=== PATIENT | female | born 1935 | race Caucasian/White ===

== ENCOUNTER 2018-01-08 14:15 | Inpatient (IN) | payer MEDICAID, OTHER ==
[~2018-01-08 14:15] MED LIST: ETOMIDATE 20 MG INJ; NORepinephrine 8MG/250 ML BAG; SUCCINYLCHOLINE CHLORIDE 100 MG/5 ML SYG IV
[2018-01-08] MEDS: ETOMIDATE 20 MG INJ IV (14:23)
[2018-01-08] MEDS: SUCCINYLCHOLINE CHLORIDE 100 MG/5 ML SYG IV (14:23)
[2018-01-08] MEDS: PROPOFOL 100 ML IV (14:23)
[2018-01-08 15:04] LABS: ADD MAN DIFF? NO
[2018-01-08 15:09] LABS: ABNORMAL IP MESSAGE 1; BASOPHILS % 0.2 % (0.0-2.0); HEMATOCRIT 41.1 % (37.0-47.0); HEMOGLOBIN 13.9 g/dl (12.0-16.0); LYMPHOCYTES # 0.3 10^3/ul (0.8-2.9); MEAN CORPUSCULAR HEMOGLOBIN 33.6 pg (29.0-33.0); MEAN CORPUSCULAR HGB CONC 33.8 g/dl (32.0-37.0); MEAN CORPUSCULAR VOLUME 99.3 fl (82.0-101.0); MEAN PLATELET VOLUME 12.3 fl (7.4-10.4); MONOCYTE # 0.5 10^3/ul (0.3-0.9); NEUTROPHIL # 3.4 10^3/ul (1.6-7.5); NEUTROPHILS % 80.3 % (39.0-77.0); NUCLEATED RED BLOOD CELLS # 0.1 10^3/ul (0.0-0.0); PLATELET COUNT 213 10^3/UL (140-415); RED BLOOD COUNT 4.14 10^6/ul (4.20-5.40); RED CELL DISTRIBUTION WIDTH 17.7 % (11.5-14.5)
[2018-01-08 15:09] LABS: WHITE BLOOD COUNT 4.3 10^3/ul (4.8-10.8)
[2018-01-08 15:10] LABS: POSITIVE DIFF @See below
[2018-01-08 15:11] LABS: AADO2 Arterial 426.3 mmHg (7.0-24.0); Allen Test ACCEPTAB; Arterial Base Excess -1.3 mmol/L (-3.0-3); Arterial Blood Gas Oxygen Sat 99.4 mmHG (95.0-100.0); Arterial COHb 0.9 % (0.0-3.0); Arterial Fraction of Oxyhgb 98.1 % (93.0-99.0); Arterial HCO3 27.3 mmol/L (22.0-26.0); Arterial MetHb 0.4 % (0.0-1.5); Arterial Total Hemglobin 15.3 g/dl (12.0-18.0); Arterial pCO2 62.1 mmhg (35-45); MODE VENT - AC; Site Left Radial
[2018-01-08] MEDS: SOD CHLORIDE 0.9% 1,000 ML IV ×4 (15:12→22:11)
[2018-01-08 15:23] LABS: ALANINE AMINOTRANSFERASE 63 IU/L (13-69); ALBUMIN 3.6 g/dl (3.3-4.9); ALBUMIN/GLOBULIN RATIO 1.02; ALKALINE PHOSPHATASE 199 IU/L (42-121); ANION GAP 20 (8-16); ASPARTATE AMINO TRANSFERASE 85 IU/L (15-46); BILIRUBIN,INDIRECT 0.9 mg/dl (0-1.1); BILIRUBIN,TOTAL 1.1 mg/dl (0.2-1.3); BLOOD UREA NITROGEN 104 mg/dl (7-20); CALCIUM 9.3 mg/dl (8.4-10.2); CARBON DIOXIDE 31 mmol/L (21-31); CHLORIDE 92 mmol/L (97-110); CREATININE 2.86 mg/dl (0.44-1.00); GLUCOSE 106 mg/dl (70-220); SODIUM 136 mmol/L (135-144); TOTAL PROTEIN 7.1 g/dl (6.1-8.1)
[2018-01-08 15:26] LABS: PARTIAL THROMBOPLASTIN TIME 40.2 Sec (25.0-35.0); PROTIME 29.4 Sec (11.9-14.9); PT RATIO 2.3
[2018-01-08 15:33] LABS: TROPONIN-I 0.028 ng/ml (0.00-0.12)
[2018-01-08 15:39] LABS: CREATINE KINASE 372 IU/L (23-200)
[2018-01-08] MEDS: CEFEPIME 1GM/50 ML (PMX) 50 ML IVPB (15:42)
[2018-01-08] MEDS: CA CHLORIDE 10% 10 ML SYRINGE IV (15:42)
[2018-01-08] MEDS: NA BICARBONATE 8.4% 50 ML SYG IV (15:42)
[2018-01-08] MEDS: HYDROmorphONE 1 MG/5 ML IV SYRINGE IV (15:43)
[2018-01-08] MEDS: ALBUTEROL 0.5% (NEB) 2.5 MG/0.5 ML AMP INH (15:58)
[2018-01-08 17:29] LABS: AADO2 Arterial 225.8 mmHg (7.0-24.0); Allen Test ACCEPTAB; Arterial Base Excess 0.5 mmol/L (-3.0-3); Arterial Blood Gas Oxygen Sat 95.8 mmHG (95.0-100.0); Arterial COHb 0.7 % (0.0-3.0); Arterial Fraction of Oxyhgb 94.8 % (93.0-99.0); Arterial HCO3 25.6 mmol/L (22.0-26.0); Arterial MetHb 0.3 % (0.0-1.5); Arterial Total Hemglobin 13.9 g/dl (12.0-18.0); Arterial pCO2 42.9 mmhg (35-45); MODE VENT - AC; Site Left Radial
[2018-01-08] MEDS ORDERED: ACETAMINOPHEN 650MG/20.3ML CUP PO (17:30)
[2018-01-08] MEDS ORDERED: ONDANSETRON 4 MG INJ IV (17:30)
[2018-01-08] MEDS ORDERED: VANCOMYCIN IV PER PHARMACY XX (17:30)
[2018-01-08 17:35] LABS: LACTIC ACID 2.3 mmol/L (0.5-2.0)
[2018-01-08 18:10] LABS: ADD UMIC YES; UR AMORPHOUS CRYSTAL FEW /HPF (NONE SEEN); UR ASCORBIC ACID NEGATIVE (NEGATIVE); UR BACTERIA FEW /HPF (NONE SEEN); UR BILIRUBIN (Dip) NEGATIVE (NEGATIVE); UR BLOOD (Dip) 3+ mg/dL (NEGATIVE); UR CLARITY CLOUDY (CLEAR); UR COLOR AMBER (YELLOW); UR GLUCOSE (Dip) NEGATIVE (NEGATIVE); UR KETONES (Dip) TRACE mg/dL (NEGATIVE); UR LEUKOCYTE ESTERASE (Dip) TRACE Leu/ul (NEGATIVE); UR NITRITE (Dip) NEGATIVE (NEGATIVE); UR RBC 99 /HPF (0-5); UR SPECIFIC GRAVITY (Dip) 1.013 (1.003-1.030); UR TOTAL PROTEIN (Dip) 2+ mg/dl (NEGATIVE); UR UROBILINOGEN (Dip) NEGATIVE (NEGATIVE); UR WBC 16 /HPF (0-5)
[2018-01-08 18:16] LABS: POTASSIUM,URINE RANDOM 82.3 mmol/L (25-125)
[2018-01-08 18:17] LABS: SODIUM,URINE RANDOM < 13 mmol/L (30-90)
[2018-01-08 18:18] LABS: OSMOLALITY,URINE 341 mOsm/kg (250-1200)
[2018-01-08] MEDS: NORepinephrine 8MG/250 ML (PMX 250 ML IV (18:40)
[2018-01-08] MEDS: MIDAZOLAM (DRIP) 50 mg/50 mL 50 ML IV (19:26)
[2018-01-08 20:07] LABS: ANION GAP 19 (8-16); BLOOD UREA NITROGEN 99 mg/dl (7-20); CALCIUM 8.9 mg/dl (8.4-10.2); CARBON DIOXIDE 28 mmol/L (21-31); CHLORIDE 96 mmol/L (97-110); CREATININE 2.65 mg/dl (0.44-1.00); GLUCOSE 102 mg/dl (70-220); SODIUM 136 mmol/L (135-144)
[2018-01-08 20:13] LABS: LACTIC ACID 3.3 mmol/L (0.5-2.0)
[2018-01-08 20:14] LABS: POTASSIUM 6.6 mmol/L (3.5-5.1)
[2018-01-08] MEDS: METOPROLOL 50 MG TAB PO (21:00)
[2018-01-08] MEDS: SOD CHLORIDE 0.9% 500 ML IV (22:11)
[2018-01-08] MEDS: NA POLYST SULFON 15 GM/60 ML BTL PO (22:25)
[2018-01-08] MEDS ORDERED: FENTAnyl (DRIP) 1000 mcg/100mL 100 ML IV (22:30)
[2018-01-08] MEDS: DEXTROSE 50% 50 ML SYRINGE IV (22:47)
[2018-01-08] MEDS: INSULIN ASPART [NOVOLOG] 3 ML PEN SC (22:51)
[2018-01-08] MEDS: VANCOMYCIN 1.5 GM in SOD CHLORIDE 0.9% 250 ML IVPB (23:52)
[2018-01-08] MEDS: FENTAnyl (DRIP) 1000 mcg/100mL 100 ML IV (23:53)
[2018-01-09] MEDS ORDERED: MIDAZOLAM (DRIP) 50 mg/50 mL 50 ML IV (00:30)
[2018-01-09 01:16] LABS: ANION GAP 18 (8-16); BLOOD UREA NITROGEN 94 mg/dl (7-20); CALCIUM 8.6 mg/dl (8.4-10.2); CARBON DIOXIDE 25 mmol/L (21-31); CHLORIDE 99 mmol/L (97-110); CREATININE 2.52 mg/dl (0.44-1.00); GLUCOSE 119 mg/dl (70-220); POTASSIUM 5.4 mmol/L (3.5-5.1); SODIUM 137 mmol/L (135-144)
[2018-01-09 01:16] LABS: LACTIC ACID 3.3 mmol/L (0.5-2.0)
[2018-01-09] MEDS: MIDAZOLAM (DRIP) 50 mg/50 mL 50 ML IV (02:01)
[2018-01-09 06:32] LABS: ADD MAN DIFF? NO
[2018-01-09 06:50] LABS: ALBUMIN 2.4 g/dl (3.3-4.9); ANION GAP 18 (8-16); BLOOD UREA NITROGEN 93 mg/dl (7-20); CALCIUM 8.6 mg/dl (8.4-10.2); CARBON DIOXIDE 25 mmol/L (21-31); CHLORIDE 100 mmol/L (97-110); CREATININE 2.56 mg/dl (0.44-1.00); GLUCOSE 126 mg/dl (70-220); MAGNESIUM 2.3 mg/dl (1.7-2.5); PHOSPHORUS 5.3 mg/dl (2.5-4.9); POTASSIUM 5.6 mmol/L (3.5-5.1); SODIUM 137 mmol/L (135-144)
[2018-01-09 07:15] LABS: LACTIC ACID 3.2 mmol/L (0.5-2.0)
[2018-01-09] MEDS: SOD CHLORIDE 0.9% 1,000 ML IV ×2 (07:34→11:02)
[2018-01-09] MEDS: RIVAROXABAN 15 MG TABLET PO (07:35)
[2018-01-09] MEDS: LEVOTHYROXINE 75 MCG TAB PO (08:18)
[2018-01-09] MEDS: PANTOPRAZOLE 40 MG INJ IV (08:18)
[2018-01-09] MEDS: THIAMINE 100 MG TAB PO (08:18)
[2018-01-09] MEDS: BUMETANIDE 1 MG TAB PO (08:18)
[2018-01-09] MEDS: METOPROLOL 50 MG TAB PO ×2 (08:18→21:00)
[2018-01-09 09:50] LABS: WHITE BLOOD COUNT 6.1 10^3/ul (4.8-10.8)
[2018-01-09 09:50] LABS: RED BLOOD COUNT 4.16 10^6/ul (4.20-5.40)
[2018-01-09 09:51] LABS: HEMATOCRIT 38.7 % (37.0-47.0); HEMOGLOBIN 13.8 g/dl (12.0-16.0); MEAN CORPUSCULAR HEMOGLOBIN 33.2 pg (29.0-33.0); MEAN CORPUSCULAR HGB CONC 35.7 g/dl (32.0-37.0); MEAN PLATELET VOLUME 12.4 fl (7.4-10.4); PLATELET COUNT 199 10^3/UL (140-415); RED CELL DISTRIBUTION WIDTH 17.2 % (11.5-14.5)
[2018-01-09 09:52] LABS: BASOPHILS % 0.2 % (0.0-2.0); LYMPHOCYTES # 0.5 10^3/ul (0.8-2.9); LYMPHOCYTES % 8.2 % (15.0-51.0); MONOCYTE # 0.6 10^3/ul (0.3-0.9); MONOCYTES % 10.2 % (0.0-11.0); NEUTROPHIL # 4.9 10^3/ul (1.6-7.5); NEUTROPHILS % 81.1 % (39.0-77.0); NUCLEATED RED BLOOD CELLS% 2.6 /100WBC (0.0-0.0)
[2018-01-09 09:53] LABS: NUCLEATED RED BLOOD CELLS # 0.2 10^3/ul (0.0-0.0)
[2018-01-09] MEDS: LACTATED RINGER'S 1,000 ML IV (15:30)
[2018-01-09] MEDS: CEFEPIME 1GM/50 ML (PMX) 50 ML IVPB (16:02)
[2018-01-09 16:44] LABS: B-TYPE NATRIURETIC PEPTIDE 8050 PG/ML (0-450)
[2018-01-09 22:48] LABS: LACTIC ACID 2.3 mmol/L (0.5-2.0)
[2018-01-10] MEDS: LACTATED RINGER'S 1,000 ML IV ×2 (01:41→11:26)
[2018-01-10] MEDS: METOPROLOL 5 MG INJ IV (01:43)
[2018-01-10] MEDS: FENTAnyl (DRIP) 1000 mcg/100mL 100 ML IV ×2 (01:43→21:19)
[2018-01-10 05:09] LABS: ADD MAN DIFF? NO
[2018-01-10 05:13] LABS: EOSINOPHILS % 0.2 % (0.0-7.0); HEMOGLOBIN 13.5 g/dl (12.0-16.0); LYMPHOCYTES # 0.7 10^3/ul (0.8-2.9); LYMPHOCYTES % 11.8 % (15.0-51.0); MEAN CORPUSCULAR HEMOGLOBIN 33.6 pg (29.0-33.0); MEAN CORPUSCULAR HGB CONC 36.5 g/dl (32.0-37.0); MEAN PLATELET VOLUME 12.2 fl (7.4-10.4); MONOCYTE # 0.5 10^3/ul (0.3-0.9); MONOCYTES % 9.1 % (0.0-11.0); NEUTROPHIL # 4.4 10^3/ul (1.6-7.5); NEUTROPHILS % 78.5 % (39.0-77.0); NUCLEATED RED BLOOD CELLS # 0.1 10^3/ul (0.0-0.0); NUCLEATED RED BLOOD CELLS% 1.6 /100WBC (0.0-0.0); PLATELET COUNT 187 10^3/UL (140-415); RED BLOOD COUNT 4.02 10^6/ul (4.20-5.40); RED CELL DISTRIBUTION WIDTH 17.2 % (11.5-14.5)
[2018-01-10 05:13] LABS: WHITE BLOOD COUNT 5.6 10^3/ul (4.8-10.8)
[2018-01-10 05:23] LABS: AADO2 Arterial 99.4 mmHg (7.0-24.0); Allen Test ACCEPTAB; Arterial Base Excess 2.1 mmol/L (-3.0-3); Arterial Blood Gas Oxygen Sat 96.6 mmHG (95.0-100.0); Arterial COHb 0.8 % (0.0-3.0); Arterial Fraction of Oxyhgb 95.4 % (93.0-99.0); Arterial HCO3 22.8 mmol/L (22.0-26.0); Arterial MetHb 0.4 % (0.0-1.5); Arterial Total Hemglobin 14.9 g/dl (12.0-18.0); MODE VENT - AC; Site Right Radial
[2018-01-10 05:33] LABS: ALBUMIN 2.1 g/dl (3.3-4.9); ANION GAP 18 (8-16); BLOOD UREA NITROGEN 89 mg/dl (7-20); CALCIUM 8.2 mg/dl (8.4-10.2); CARBON DIOXIDE 24 mmol/L (21-31); CHLORIDE 101 mmol/L (97-110); CREATININE 2.41 mg/dl (0.44-1.00); GLUCOSE 136 mg/dl (70-220); MAGNESIUM 2.1 mg/dl (1.7-2.5); PHOSPHORUS 4.3 mg/dl (2.5-4.9); POTASSIUM 4.3 mmol/L (3.5-5.1); SODIUM 139 mmol/L (135-144)
[2018-01-10 05:42] LABS: ALANINE AMINOTRANSFERASE 51 IU/L (13-69); ALBUMIN 2.2 g/dl (3.3-4.9); ALBUMIN/GLOBULIN RATIO 0.78; ALKALINE PHOSPHATASE 136 IU/L (42-121); ANION GAP 15 (8-16); ASPARTATE AMINO TRANSFERASE 49 IU/L (15-46); BILIRUBIN,INDIRECT 1.1 mg/dl (0-1.1); BILIRUBIN,TOTAL 1.1 mg/dl (0.2-1.3); BLOOD UREA NITROGEN 88 mg/dl (7-20); CARBON DIOXIDE 26 mmol/L (21-31); CHLORIDE 103 mmol/L (97-110); CREATININE 2.49 mg/dl (0.44-1.00); GLUCOSE 135 mg/dl (70-220); POTASSIUM 4.1 mmol/L (3.5-5.1); SODIUM 140 mmol/L (135-144)
[2018-01-10] MEDS: LEVOTHYROXINE 75 MCG TAB PO (06:00)
[2018-01-10] MEDS: PANTOPRAZOLE 40 MG INJ IV (06:00)
[2018-01-10] MEDS: BUMETANIDE 1 MG TAB PO (09:05)
[2018-01-10] MEDS: THIAMINE 100 MG TAB PO (09:05)
[2018-01-10] MEDS: METOPROLOL 50 MG TAB PO ×2 (09:45→21:13)
[2018-01-10] MEDS: MAGNESIUM HYDROXIDE 30ML CUP PO (10:24)
[2018-01-10] MEDS: CEFEPIME 1GM/50 ML (PMX) 50 ML IVPB (16:30)
[2018-01-10] MEDS: VANCOMYCIN 750 MG in DEXTROSE 5% 150 ML IVPB (21:14)
[2018-01-11 05:23] LABS: AADO2 Arterial 89.4 mmHg (7.0-24.0); Allen Test ACCEPTAB; Arterial Base Excess 3.4 mmol/L (-3.0-3); Arterial Blood Gas Oxygen Sat 92.3 mmHG (95.0-100.0); Arterial MetHb 0.4 % (0.0-1.5); Arterial Total Hemglobin 14.2 g/dl (12.0-18.0); Arterial pCO2 47.9 mmhg (35-45); MODE VENT - AC; Site Right Brachial
[2018-01-11] MEDS: PANTOPRAZOLE 40 MG INJ IV (06:02)
[2018-01-11] MEDS: LEVOTHYROXINE 75 MCG TAB PO (06:03)
[2018-01-11 06:22] LABS: ADD MAN DIFF? NO
[2018-01-11 06:33] LABS: ABNORMAL IP MESSAGE 1; BASOPHILS % 0.2 % (0.0-2.0); EOSINOPHILS # 0.1 10^3/ul (0.0-0.5); EOSINOPHILS % 1.7 % (0.0-7.0); HEMATOCRIT 38.4 % (37.0-47.0); HEMOGLOBIN 13.4 g/dl (12.0-16.0); LYMPHOCYTES # 0.5 10^3/ul (0.8-2.9); LYMPHOCYTES % 7.6 % (15.0-51.0); MEAN CORPUSCULAR HEMOGLOBIN 33.6 pg (29.0-33.0); MEAN CORPUSCULAR HGB CONC 34.9 g/dl (32.0-37.0); MEAN CORPUSCULAR VOLUME 96.2 fl (82.0-101.0); MEAN PLATELET VOLUME 12.2 fl (7.4-10.4); MONOCYTE # 0.6 10^3/ul (0.3-0.9); MONOCYTES % 10.6 % (0.0-11.0); NEUTROPHIL # 4.8 10^3/ul (1.6-7.5); NEUTROPHILS % 79.6 % (39.0-77.0); NUCLEATED RED BLOOD CELLS # 0.1 10^3/ul (0.0-0.0); NUCLEATED RED BLOOD CELLS% 1.2 /100WBC (0.0-0.0); PLATELET COUNT 171 10^3/UL (140-415); RED BLOOD COUNT 3.99 10^6/ul (4.20-5.40); RED CELL DISTRIBUTION WIDTH 18.2 % (11.5-14.5)
[2018-01-11 06:40] LABS: POSITIVE DIFF @See below
[2018-01-11 07:01] LABS: ALBUMIN 2.5 g/dl (3.3-4.9); ANION GAP 19 (8-16); BLOOD UREA NITROGEN 83 mg/dl (7-20); CALCIUM 8.1 mg/dl (8.4-10.2); CARBON DIOXIDE 30 mmol/L (21-31); CHLORIDE 99 mmol/L (97-110); CREATININE 2.37 mg/dl (0.44-1.00); GLUCOSE 125 mg/dl (70-220); MAGNESIUM 2.1 mg/dl (1.7-2.5); PHOSPHORUS 4.2 mg/dl (2.5-4.9); POTASSIUM 3.5 mmol/L (3.5-5.1); SODIUM 144 mmol/L (135-144)
[2018-01-11 07:03] LABS: LACTIC ACID 1.5 mmol/L (0.5-2.0)
[2018-01-11] MEDS: BUMETANIDE 1 MG TAB PO (09:03)
[2018-01-11] MEDS: THIAMINE 100 MG TAB PO (09:03)
[2018-01-11] MEDS: METOPROLOL 50 MG TAB PO ×2 (09:04→21:55)
[2018-01-11] MEDS: ACETYLCYSTEINE 20% 4 ML VIAL NEB ×4 (09:25→19:48)
[2018-01-11] MEDS: ALBUTEROL 0.083% (NEB) 2.5 MG/3 ML AMP NEB ×4 (09:25→19:48)
[2018-01-11 15:43] LABS: CREATINE KINASE 49 IU/L (23-200)
[2018-01-11 15:55] LABS: CK INDEX 8.1; CK-MB 3.97 ng/ml (0.0-2.4); TROPONIN-I 0.026 ng/ml (0.00-0.12)
[2018-01-11] MEDS: CEFEPIME 1GM/50 ML (PMX) 50 ML IVPB (16:13)
[2018-01-11] MEDS: FENTAnyl (DRIP) 1000 mcg/100mL 100 ML IV (16:48)
[2018-01-11] MEDS: RIVAROXABAN 15 MG TABLET PO (18:09)
[2018-01-12 02:22] LABS: CARCINOEMBRYONIC ANTIGEN 2.4 ng/ml (0.0-5.0)
[2018-01-12 05:14] LABS: ADD MAN DIFF? NO
[2018-01-12 05:19] LABS: WHITE BLOOD COUNT 5.6 10^3/ul (4.8-10.8)
[2018-01-12 05:19] LABS: ABNORMAL IP MESSAGE 1; BASOPHILS % 0.2 % (0.0-2.0); EOSINOPHILS # 0.1 10^3/ul (0.0-0.5); EOSINOPHILS % 0.9 % (0.0-7.0); HEMATOCRIT 37.1 % (37.0-47.0); HEMOGLOBIN 12.6 g/dl (12.0-16.0); LYMPHOCYTES # 0.3 10^3/ul (0.8-2.9); LYMPHOCYTES % 5.9 % (15.0-51.0); MEAN CORPUSCULAR HEMOGLOBIN 32.8 pg (29.0-33.0); MEAN CORPUSCULAR VOLUME 96.6 fl (82.0-101.0); MEAN PLATELET VOLUME 12.3 fl (7.4-10.4); MONOCYTE # 0.6 10^3/ul (0.3-0.9); MONOCYTES % 10.5 % (0.0-11.0); NEUTROPHIL # 4.6 10^3/ul (1.6-7.5); NEUTROPHILS % 82.1 % (39.0-77.0); NUCLEATED RED BLOOD CELLS # 0.1 10^3/ul (0.0-0.0); NUCLEATED RED BLOOD CELLS% 0.9 /100WBC (0.0-0.0); PLATELET COUNT 149 10^3/UL (140-415); RED BLOOD COUNT 3.84 10^6/ul (4.20-5.40); RED CELL DISTRIBUTION WIDTH 18.3 % (11.5-14.5)
[2018-01-12 05:27] LABS: POSITIVE DIFF @See below
[2018-01-12 05:39] LABS: ANION GAP 11 (8-16); BLOOD UREA NITROGEN 77 mg/dl (7-20); CARBON DIOXIDE 33 mmol/L (21-31); CHLORIDE 104 mmol/L (97-110); CREATININE 2.19 mg/dl (0.44-1.00); GLUCOSE 141 mg/dl (70-220); PHOSPHORUS 4.5 mg/dl (2.5-4.9); SODIUM 145 mmol/L (135-144)
[2018-01-12 06:08] LABS: POTASSIUM 2.9 mmol/L (3.5-5.1)
[2018-01-12] MEDS: PANTOPRAZOLE 40 MG INJ IV (06:38)
[2018-01-12] MEDS: POTASSIUM CHLORIDE 20 MEQ POWDER FOR ORAL SOLN NGT ×2 (06:38→09:59)
[2018-01-12] MEDS: LEVOTHYROXINE 75 MCG TAB PO (06:38)
[2018-01-12] MEDS: ALBUTEROL 0.083% (NEB) 2.5 MG/3 ML AMP NEB ×4 (08:51→19:46)
[2018-01-12] MEDS: ACETYLCYSTEINE 20% 4 ML VIAL NEB ×4 (08:51→19:50)
[2018-01-12] MEDS: BUMETANIDE 1 MG TAB PO (09:58)
[2018-01-12] MEDS: THIAMINE 100 MG TAB PO (09:59)
[2018-01-12] MEDS: METOPROLOL 50 MG TAB PO (09:59)
[2018-01-12] MEDS: FENTAnyl (DRIP) 1000 mcg/100mL 100 ML IV ×2 (10:22→18:38)
[2018-01-12] MEDS: POLYETHYLENE GLYCOL 17 GM PACKET GTB (12:00)
[2018-01-12] MEDS: CEFEPIME 1GM/50 ML (PMX) 50 ML IVPB (16:24)
[2018-01-12] MEDS: METOPROLOL 100 MG TAB PO (20:15)
[2018-01-12 22:00] LABS: VANCOMYCIN,TROUGH 8.7 ug/ml (10.0-20.0)
[2018-01-12] MEDS: VANCOMYCIN 750 MG in DEXTROSE 5% 150 ML IVPB (22:00)
[2018-01-12] MEDS: VANCOMYCIN 1 GM 250 ML IVPB (22:08)
[2018-01-13] MEDS: FENTAnyl (DRIP) 1000 mcg/100mL 100 ML IV (05:41)
[2018-01-13] MEDS: PANTOPRAZOLE 40 MG INJ IV (06:00)
[2018-01-13] MEDS: LEVOTHYROXINE 75 MCG TAB PO (06:00)
[2018-01-13 06:01] LABS: ADD MAN DIFF? NO
[2018-01-13 06:10] LABS: ABNORMAL IP MESSAGE 1; BASOPHILS % 0.2 % (0.0-2.0); EOSINOPHILS # 0.1 10^3/ul (0.0-0.5); EOSINOPHILS % 1.2 % (0.0-7.0); HEMATOCRIT 36.6 % (37.0-47.0); HEMOGLOBIN 12.6 g/dl (12.0-16.0); LYMPHOCYTES # 0.4 10^3/ul (0.8-2.9); LYMPHOCYTES % 5.4 % (15.0-51.0); MEAN CORPUSCULAR HEMOGLOBIN 33.5 pg (29.0-33.0); MEAN CORPUSCULAR HGB CONC 34.4 g/dl (32.0-37.0); MEAN CORPUSCULAR VOLUME 97.3 fl (82.0-101.0); MEAN PLATELET VOLUME 12.6 fl (7.4-10.4); MONOCYTE # 0.8 10^3/ul (0.3-0.9); MONOCYTES % 11.8 % (0.0-11.0); NEUTROPHIL # 5.3 10^3/ul (1.6-7.5); NEUTROPHILS % 80.9 % (39.0-77.0); NUCLEATED RED BLOOD CELLS # 0.1 10^3/ul (0.0-0.0); NUCLEATED RED BLOOD CELLS% 1.7 /100WBC (0.0-0.0); PLATELET COUNT 134 10^3/UL (140-415); RED BLOOD COUNT 3.76 10^6/ul (4.20-5.40); RED CELL DISTRIBUTION WIDTH 18.6 % (11.5-14.5)
[2018-01-13 06:10] LABS: WHITE BLOOD COUNT 6.5 10^3/ul (4.8-10.8)
[2018-01-13 06:30] LABS: POSITIVE DIFF @See below
[2018-01-13 06:34] LABS: INR 1.04; PROTIME 13.7 Sec (11.9-14.9); PT RATIO 1.1
[2018-01-13 06:35] LABS: PARTIAL THROMBOPLASTIN TIME 37.1 Sec (25.0-35.0)
[2018-01-13 07:21] LABS: ANION GAP 10 (8-16); BLOOD UREA NITROGEN 76 mg/dl (7-20); CALCIUM 8.5 mg/dl (8.4-10.2); CARBON DIOXIDE 33 mmol/L (21-31); CHLORIDE 106 mmol/L (97-110); CREATININE 2.15 mg/dl (0.44-1.00); GLUCOSE 155 mg/dl (70-220); MAGNESIUM 2.2 mg/dl (1.7-2.5); PHOSPHORUS 4.3 mg/dl (2.5-4.9); POTASSIUM 3.6 mmol/L (3.5-5.1); SODIUM 145 mmol/L (135-144)
[2018-01-13] MEDS: ALBUTEROL 0.083% (NEB) 2.5 MG/3 ML AMP NEB (07:55)
[2018-01-13] MEDS: ACETYLCYSTEINE 20% 4 ML VIAL NEB (07:55)
[2018-01-13] MEDS: DIGOXIN 500 MCG INJ IV (08:44)
[2018-01-13] MEDS: BUMETANIDE 1 MG TAB PO ×2 (09:00→10:17)
[2018-01-13] MEDS: METOPROLOL 100 MG TAB PO ×2 (09:00→21:00)
[2018-01-13] MEDS: LORAZEPAM 2 MG INJ IV ×2 (09:04→16:33)
[2018-01-13] MEDS: LIDOCAINE 1% (MDV) 10 ML INJ (10:15)
[2018-01-13] MEDS: MAGNESIUM HYDROXIDE 30ML CUP PO (10:16)
[2018-01-13] MEDS: THIAMINE 100 MG TAB PO (10:17)
[2018-01-13 10:21] LABS: FLD RBC 0 /uL; FLD WBC 156 /cmm
[2018-01-13 10:40] LABS: FLD TYPE THORACENTHESIS
[2018-01-13 10:40] LABS: FLD CLARITY CLEAR; FLD COLOR YELLOW
[2018-01-13 10:56] LABS: FLUID LD 301 U/L; FLUID TOTAL PROTEIN 2.1 g/dl; FLUID TYPE THORACENTESIS FLUID
[2018-01-13 13:47] LABS: FLUID GLUCOSE 150 mg/dl
[2018-01-13 13:48] LABS: FLUID TYPE THORACENTESIS FLUID
[2018-01-13] MEDS: CEFEPIME 1GM/50 ML (PMX) 50 ML IVPB (15:05)
[2018-01-14] MEDS: AMIODARONE 150MG/D5W BOLUS 100 ML IV (04:37)
[2018-01-14 05:16] LABS: ADD MAN DIFF? NO
[2018-01-14 05:18] LABS: ABNORMAL IP MESSAGE 1; BASOPHILS % 0.5 % (0.0-2.0); EOSINOPHILS # 0.1 10^3/ul (0.0-0.5); EOSINOPHILS % 0.8 % (0.0-7.0); HEMATOCRIT 40.1 % (37.0-47.0); HEMOGLOBIN 13.5 g/dl (12.0-16.0); LYMPHOCYTES # 0.4 10^3/ul (0.8-2.9); LYMPHOCYTES % 6.4 % (15.0-51.0); MEAN CORPUSCULAR HGB CONC 33.7 g/dl (32.0-37.0); MEAN PLATELET VOLUME 12.4 fl (7.4-10.4); MONOCYTE # 0.9 10^3/ul (0.3-0.9); MONOCYTES % 13.6 % (0.0-11.0); NEUTROPHIL # 4.9 10^3/ul (1.6-7.5); NEUTROPHILS % 78.1 % (39.0-77.0); NUCLEATED RED BLOOD CELLS # 0.1 10^3/ul (0.0-0.0); NUCLEATED RED BLOOD CELLS% 2.2 /100WBC (0.0-0.0); PLATELET COUNT 143 10^3/UL (140-415); RED BLOOD COUNT 4.09 10^6/ul (4.20-5.40)
[2018-01-14 05:18] LABS: WHITE BLOOD COUNT 6.3 10^3/ul (4.8-10.8)
[2018-01-14] MEDS: AMIODARONE 900 MG in DEXTROSE 5% 482 ML IV (05:28)
[2018-01-14 05:29] LABS: POSITIVE DIFF @See below
[2018-01-14] MEDS: PANTOPRAZOLE 40 MG INJ IV (05:34)
[2018-01-14 05:58] LABS: ANION GAP 10 (8-16); BLOOD UREA NITROGEN 74 mg/dl (7-20); CALCIUM 8.7 mg/dl (8.4-10.2); CARBON DIOXIDE 34 mmol/L (21-31); CHLORIDE 108 mmol/L (97-110); CREATININE 2.09 mg/dl (0.44-1.00); GLUCOSE 159 mg/dl (70-220); MAGNESIUM 2.3 mg/dl (1.7-2.5); POTASSIUM 3.3 mmol/L (3.5-5.1); SODIUM 149 mmol/L (135-144)
[2018-01-14 07:27] LABS: AADO2 Arterial 556.6 mmHg (7.0-24.0); Allen Test ACCEPTAB; Arterial Base Excess 3.4 mmol/L (-3.0-3); Arterial Blood Gas Oxygen Sat 96.3 mmHG (95.0-100.0); Arterial COHb 0.5 % (0.0-3.0); Arterial Fraction of Oxyhgb 95.4 % (93.0-99.0); Arterial MetHb 0.4 % (0.0-1.5); Arterial Total Hemglobin 14.6 g/dl (12.0-18.0); Arterial pCO2 66.7 mmhg (35-45); MODE VENT - AC; Site Right Radial
[2018-01-14] MEDS: LEVOTHYROXINE 75 MCG TAB PO (07:48)
[2018-01-14] MEDS: THIAMINE 100 MG TAB PO (08:01)
[2018-01-14] MEDS: BUMETANIDE 1 MG TAB PO (08:01)
[2018-01-14] MEDS: METOPROLOL 100 MG TAB PO ×2 (08:01→21:51)
[2018-01-14] MEDS: DIGOXIN 500 MCG INJ IV (09:18)
[2018-01-14] MEDS: POTASSIUM CHLORIDE 20 MEQ POWDER FOR ORAL SOLN GTB (09:18)
[2018-01-14] MEDS: SILVER SULFADIAZINE 1% 25 GM CR TOP (12:34)
[2018-01-14] MEDS: CEFEPIME 1GM/50 ML (PMX) 50 ML IVPB (16:02)
[2018-01-14] MEDS: RIVAROXABAN 15 MG TABLET PO (16:38)
[2018-01-14] MEDS: NORepinephrine 8MG/250 ML (PMX 250 ML IV (16:43)
[2018-01-14] MEDS: VANCOMYCIN 1 GM 250 ML IVPB (21:50)
[2018-01-15] MEDS: FENTAnyl (DRIP) 1000 mcg/100mL 100 ML IV ×2 (04:15→12:26)
[2018-01-15] MEDS: PANTOPRAZOLE 40 MG INJ IV (05:08)
[2018-01-15 06:00] LABS: ADD MAN DIFF? NO
[2018-01-15 06:10] LABS: BASOPHILS % 0.2 % (0.0-2.0); EOSINOPHILS % 0.6 % (0.0-7.0); HEMATOCRIT 37.4 % (37.0-47.0); HEMOGLOBIN 12.9 g/dl (12.0-16.0); LYMPHOCYTES # 0.7 10^3/ul (0.8-2.9); MEAN CORPUSCULAR HGB CONC 34.5 g/dl (32.0-37.0); MEAN CORPUSCULAR VOLUME 95.7 fl (82.0-101.0); MEAN PLATELET VOLUME 12.6 fl (7.4-10.4); MONOCYTES % 14.7 % (0.0-11.0); NEUTROPHIL # 4.9 10^3/ul (1.6-7.5); NEUTROPHILS % 72.9 % (39.0-77.0); NUCLEATED RED BLOOD CELLS # 0.1 10^3/ul (0.0-0.0); NUCLEATED RED BLOOD CELLS% 1.4 /100WBC (0.0-0.0); PLATELET COUNT 141 10^3/UL (140-415); RED BLOOD COUNT 3.91 10^6/ul (4.20-5.40)
[2018-01-15 06:10] LABS: WHITE BLOOD COUNT 6.7 10^3/ul (4.8-10.8)
[2018-01-15 06:32] LABS: DIGOXIN 0.7 ng/ml (1.0-2.0)
[2018-01-15 06:34] LABS: ALANINE AMINOTRANSFERASE 35 IU/L (13-69); ALBUMIN 2.7 g/dl (3.3-4.9); ALBUMIN/GLOBULIN RATIO 0.81; ALKALINE PHOSPHATASE 130 IU/L (42-121); ANION GAP 12 (8-16); ASPARTATE AMINO TRANSFERASE 27 IU/L (15-46); BILIRUBIN,INDIRECT 1.1 mg/dl (0-1.1); BILIRUBIN,TOTAL 1.1 mg/dl (0.2-1.3); BLOOD UREA NITROGEN 74 mg/dl (7-20); CALCIUM 8.8 mg/dl (8.4-10.2); CARBON DIOXIDE 33 mmol/L (21-31); CHLORIDE 105 mmol/L (97-110); CREATININE 2.12 mg/dl (0.44-1.00); GLUCOSE 214 mg/dl (70-220); MAGNESIUM 2.3 mg/dl (1.7-2.5); POTASSIUM 3.4 mmol/L (3.5-5.1); SODIUM 147 mmol/L (135-144)
[2018-01-15 06:38] LABS: B-TYPE NATRIURETIC PEPTIDE 14100 PG/ML (0-450)
[2018-01-15] MEDS: METOPROLOL 100 MG TAB PO ×2 (08:32→21:00)
[2018-01-15] MEDS: DIGOXIN 500 MCG INJ IV (08:34)
[2018-01-15] MEDS: THIAMINE 100 MG TAB PO (08:39)
[2018-01-15] MEDS: LEVOTHYROXINE 75 MCG TAB PO (08:39)
[2018-01-15] MEDS: BUMETANIDE 1 MG TAB PO (08:39)
[2018-01-15] MEDS: PHENYLephrine 20MG IN 250 ML 250 ML IV ×2 (08:49→13:09)
[2018-01-15] MEDS: D5W + KCL 20 MEQ 1,000 ML IV ×2 (10:10→21:00)
[2018-01-15] MEDS: ACETYLCYSTEINE 20% 4 ML VIAL NEB (11:56)
[2018-01-15] MEDS ORDERED: PROPOFOL 100 ML (11:58)
[2018-01-15] MEDS: PROPOFOL 100 ML IV ×2 (12:06→23:47)
[2018-01-15] MEDS: CEFEPIME 1GM/50 ML (PMX) 50 ML IVPB (16:29)
[2018-01-15] MEDS: RIVAROXABAN 15 MG TABLET PO (17:35)
[2018-01-15] MEDS: PHENYLephrine 40 MG in DEXTROSE 5% 496 ML IV (21:58)
[2018-01-16 05:11] LABS: WHITE BLOOD COUNT 8.2 10^3/ul (4.8-10.8)
[2018-01-16 05:11] LABS: ABNORMAL IP MESSAGE 1; HEMATOCRIT 35.6 % (37.0-47.0); HEMOGLOBIN 12.6 g/dl (12.0-16.0); MEAN CORPUSCULAR HEMOGLOBIN 33.2 pg (29.0-33.0); MEAN CORPUSCULAR HGB CONC 35.4 g/dl (32.0-37.0); MEAN CORPUSCULAR VOLUME 93.9 fl (82.0-101.0); MEAN PLATELET VOLUME 12.1 fl (7.4-10.4); NUCLEATED RED BLOOD CELLS% 0.6 /100WBC (0.0-0.0); PLATELET COUNT 157 10^3/UL (140-415); RED BLOOD COUNT 3.79 10^6/ul (4.20-5.40); RED CELL DISTRIBUTION WIDTH 17.9 % (11.5-14.5)
[2018-01-16 05:31] LABS: ADD MAN DIFF? YES; POSITIVE DIFF @See below
[2018-01-16 05:35] LABS: ALANINE AMINOTRANSFERASE 32 IU/L (13-69); ALBUMIN 2.5 g/dl (3.3-4.9); ALBUMIN/GLOBULIN RATIO 0.75; ALKALINE PHOSPHATASE 105 IU/L (42-121); ANION GAP 13 (8-16); ASPARTATE AMINO TRANSFERASE 33 IU/L (15-46); BILIRUBIN,INDIRECT 1.1 mg/dl (0-1.1); BILIRUBIN,TOTAL 1.1 mg/dl (0.2-1.3); BLOOD UREA NITROGEN 69 mg/dl (7-20); CALCIUM 8.7 mg/dl (8.4-10.2); CARBON DIOXIDE 29 mmol/L (21-31); CHLORIDE 107 mmol/L (97-110); CREATININE 1.84 mg/dl (0.44-1.00); GLUCOSE 178 mg/dl (70-220); MAGNESIUM 2.2 mg/dl (1.7-2.5); POTASSIUM 3.5 mmol/L (3.5-5.1); SODIUM 145 mmol/L (135-144); TOTAL PROTEIN 5.8 g/dl (6.1-8.1)
[2018-01-16] MEDS: PANTOPRAZOLE 40 MG INJ IV (06:13)
[2018-01-16] MEDS: LEVOTHYROXINE 75 MCG TAB PO (06:13)
[2018-01-16 07:00] LABS: DIGOXIN 1.3 ng/ml (1.0-2.0)
[2018-01-16 07:39] LABS: ANISOCYTOSIS 3+ (0-0); BAND NEUTROPHILS #M 2.7 10^3/ul (0.0-0.6); BAND NEUTROPHILS % (M) 34 % (0-4); EOSINOPHILS % (M) 1 % (0-7); ERYTHROBLAST% (NRBC) (M) 4 % (0-0); LYMPHOCYTES #M 0.9 10^3/ul (0.8-2.9); LYMPHOCYTES % (M) 12 % (15-51); MONOCYTE #M 0.2 10^3/ul (0.3-0.9); MONOCYTES % (M) 3 % (0-11); PLATELET ESTIMATE NORMAL; SEG NEUT #M 4.3 10^3/ul (1.6-7.5); SEGMENTED NEUTROPHILS (M) % 50 % (39-77); SMUDGE%M 15 % (0-0)
[2018-01-16] MEDS: FENTAnyl (DRIP) 1000 mcg/100mL 100 ML IV ×2 (08:17→21:13)
[2018-01-16] MEDS: THIAMINE 100 MG TAB PO (08:18)
[2018-01-16] MEDS: BUMETANIDE 1 MG TAB PO (08:18)
[2018-01-16] MEDS: METOPROLOL 100 MG TAB PO (08:19)
[2018-01-16] MEDS: D5W + KCL 20 MEQ 1,000 ML IV ×2 (11:10→21:12)
[2018-01-16] MEDS: PROPOFOL 100 ML IV ×2 (12:00→21:12)
[2018-01-16] MEDS: CEFEPIME 1GM/50 ML (PMX) 50 ML IVPB (15:35)
[2018-01-16] MEDS: RIVAROXABAN 15 MG TABLET PO (16:46)
[2018-01-16] MEDS: PHENYLephrine 40 MG in DEXTROSE 5% 496 ML IV (19:00)
[2018-01-16] MEDS: VANCOMYCIN 1 GM 250 ML IVPB (21:12)
[2018-01-17 05:34] LABS: ADD MAN DIFF? NO
[2018-01-17 05:45] LABS: WHITE BLOOD COUNT 7.3 10^3/ul (4.8-10.8)
[2018-01-17 05:45] LABS: ABNORMAL IP MESSAGE 1; BASOPHILS % 0.1 % (0.0-2.0); EOSINOPHILS # 0.1 10^3/ul (0.0-0.5); HEMATOCRIT 33.6 % (37.0-47.0); HEMOGLOBIN 11.9 g/dl (12.0-16.0); LYMPHOCYTES # 0.6 10^3/ul (0.8-2.9); LYMPHOCYTES % 7.5 % (15.0-51.0); MEAN CORPUSCULAR HEMOGLOBIN 33.3 pg (29.0-33.0); MEAN CORPUSCULAR HGB CONC 35.4 g/dl (32.0-37.0); MEAN CORPUSCULAR VOLUME 94.1 fl (82.0-101.0); MEAN PLATELET VOLUME 12.6 fl (7.4-10.4); MONOCYTE # 0.5 10^3/ul (0.3-0.9); MONOCYTES % 6.3 % (0.0-11.0); NEUTROPHIL # 6.2 10^3/ul (1.6-7.5); NEUTROPHILS % 84.4 % (39.0-77.0); NUCLEATED RED BLOOD CELLS% 0.3 /100WBC (0.0-0.0); PLATELET COUNT 159 10^3/UL (140-415); RED BLOOD COUNT 3.57 10^6/ul (4.20-5.40); RED CELL DISTRIBUTION WIDTH 17.7 % (11.5-14.5)
[2018-01-17 05:53] LABS: POSITIVE DIFF @See below
[2018-01-17] MEDS: PANTOPRAZOLE 40 MG INJ IV (06:08)
[2018-01-17 06:13] LABS: ALANINE AMINOTRANSFERASE 25 IU/L (13-69); ALBUMIN 2.1 g/dl (3.3-4.9); ALKALINE PHOSPHATASE 117 IU/L (42-121); ANION GAP 9 (8-16); ASPARTATE AMINO TRANSFERASE 22 IU/L (15-46); BILIRUBIN,INDIRECT 0.5 mg/dl (0-1.1); BILIRUBIN,TOTAL 0.5 mg/dl (0.2-1.3); BLOOD UREA NITROGEN 65 mg/dl (7-20); CALCIUM 8.6 mg/dl (8.4-10.2); CARBON DIOXIDE 32 mmol/L (21-31); CHLORIDE 106 mmol/L (97-110); CREATININE 1.73 mg/dl (0.44-1.00); GLUCOSE 252 mg/dl (70-220); POTASSIUM 3.1 mmol/L (3.5-5.1); SODIUM 144 mmol/L (135-144); TOTAL PROTEIN 5.1 g/dl (6.1-8.1)
[2018-01-17] MEDS: LEVOTHYROXINE 75 MCG TAB PO (07:51)
[2018-01-17] MEDS: POTASSIUM CHLORIDE 20 MEQ POWDER FOR ORAL SOLN NGT (07:51)
[2018-01-17] MEDS: THIAMINE 100 MG TAB PO (08:03)
[2018-01-17] MEDS: BUMETANIDE 1 MG TAB PO (08:03)
[2018-01-17 08:37] LABS: Allen Test ACCEPTAB; Arterial Base Excess 0.2 mmol/L (-3.0-3); Arterial Blood Gas Oxygen Sat 97.1 mmHG (95.0-100.0); Arterial COHb 0.5 % (0.0-3.0); Arterial Fraction of Oxyhgb 96.2 % (93.0-99.0); Arterial HCO3 25.2 mmol/L (22.0-26.0); Arterial MetHb 0.4 % (0.0-1.5); Arterial Total Hemglobin 13.9 g/dl (12.0-18.0); Arterial pCO2 42.3 mmhg (35-45); MODE VENT - AC; Site Right Radial
[2018-01-17] MEDS: ALBUMIN HUMAN 25% 50 ML IV ×2 (09:25→21:02)
[2018-01-17] MEDS: PROPOFOL 100 ML IV ×2 (11:25→13:49)
[2018-01-17] MEDS: CEFEPIME 1GM/50 ML (PMX) 50 ML IVPB (16:09)
[2018-01-17] MEDS: RIVAROXABAN 15 MG TABLET PO (17:55)
[2018-01-17] MEDS: BUMETANIDE 1 MG INJ IV (17:55)
[2018-01-17] MEDS: FENTAnyl (DRIP) 1000 mcg/100mL 100 ML IV (21:07)
[2018-01-18] MEDS: PROPOFOL 100 ML IV ×2 (04:25→12:24)
[2018-01-18] MEDS: PHENYLephrine 40 MG in DEXTROSE 5% 496 ML IV (04:33)
[2018-01-18 05:25] LABS: ADD MAN DIFF? NO
[2018-01-18 05:28] LABS: BASOPHILS % 0.3 % (0.0-2.0); EOSINOPHILS # 0.1 10^3/ul (0.0-0.5); EOSINOPHILS % 1.2 % (0.0-7.0); HEMATOCRIT 36.6 % (37.0-47.0); HEMOGLOBIN 12.8 g/dl (12.0-16.0); LYMPHOCYTES # 0.8 10^3/ul (0.8-2.9); LYMPHOCYTES % 10.7 % (15.0-51.0); MEAN CORPUSCULAR HEMOGLOBIN 33.2 pg (29.0-33.0); MEAN CORPUSCULAR VOLUME 95.1 fl (82.0-101.0); MEAN PLATELET VOLUME 12.5 fl (7.4-10.4); MONOCYTE # 0.4 10^3/ul (0.3-0.9); MONOCYTES % 5.8 % (0.0-11.0); NEUTROPHIL # 6.1 10^3/ul (1.6-7.5); NEUTROPHILS % 81.2 % (39.0-77.0); NUCLEATED RED BLOOD CELLS% 0.4 /100WBC (0.0-0.0); PLATELET COUNT 184 10^3/UL (140-415); RED BLOOD COUNT 3.85 10^6/ul (4.20-5.40); RED CELL DISTRIBUTION WIDTH 17.7 % (11.5-14.5)
[2018-01-18 05:28] LABS: WHITE BLOOD COUNT 7.5 10^3/ul (4.8-10.8)
[2018-01-18] MEDS: BUMETANIDE 1 MG INJ IV ×2 (05:47→17:15)
[2018-01-18] MEDS: PANTOPRAZOLE 40 MG INJ IV (05:47)
[2018-01-18 06:00] LABS: ANION GAP 11 (8-16); BLOOD UREA NITROGEN 63 mg/dl (7-20); CALCIUM 8.6 mg/dl (8.4-10.2); CARBON DIOXIDE 30 mmol/L (21-31); CHLORIDE 104 mmol/L (97-110); GLUCOSE 259 mg/dl (70-220); MAGNESIUM 2.2 mg/dl (1.7-2.5); PHOSPHORUS 2.6 mg/dl (2.5-4.9); POTASSIUM 3.2 mmol/L (3.5-5.1); SODIUM 142 mmol/L (135-144)
[2018-01-18] MEDS: POTASSIUM CHLORIDE 20 MEQ POWDER FOR ORAL SOLN GTB (07:55)
[2018-01-18] MEDS: LEVOTHYROXINE 75 MCG TAB PO (07:55)
[2018-01-18] MEDS: THIAMINE 100 MG TAB PO (09:15)
[2018-01-18] MEDS: ALBUMIN HUMAN 25% 50 ML IV ×2 (09:16→20:59)
[2018-01-18] MEDS: POTASSIUM CHLORIDE 100 ML IVPB (10:09)
[2018-01-18] MEDS: CEFEPIME 1GM/50 ML (PMX) 50 ML IVPB (15:07)
[2018-01-18] MEDS: SILVER SULFADIAZINE 1% 25 GM CR TOP (15:55)
[2018-01-18] MEDS: RIVAROXABAN 15 MG TABLET PO (16:58)
[2018-01-18] MEDS: FENTAnyl (DRIP) 1000 mcg/100mL 100 ML IV (17:14)
[2018-01-18 21:38] LABS: VANCOMYCIN,TROUGH 9.4 ug/ml (10.0-20.0)
[2018-01-18] MEDS: VANCOMYCIN 1 GM 250 ML IVPB (21:57)
[2018-01-19] MEDS: PROPOFOL 100 ML IV ×3 (03:05→22:33)
[2018-01-19] MEDS: PHENYLephrine 40 MG in DEXTROSE 5% 496 ML IV (03:16)
[2018-01-19 05:07] LABS: ADD MAN DIFF? NO
[2018-01-19 05:11] LABS: BASOPHILS % 0.4 % (0.0-2.0); EOSINOPHILS # 0.1 10^3/ul (0.0-0.5); EOSINOPHILS % 1.3 % (0.0-7.0); HEMOGLOBIN 12.2 g/dl (12.0-16.0); LYMPHOCYTES # 0.6 10^3/ul (0.8-2.9); LYMPHOCYTES % 7.8 % (15.0-51.0); MEAN CORPUSCULAR HEMOGLOBIN 32.9 pg (29.0-33.0); MEAN CORPUSCULAR HGB CONC 34.9 g/dl (32.0-37.0); MEAN CORPUSCULAR VOLUME 94.3 fl (82.0-101.0); MEAN PLATELET VOLUME 12.6 fl (7.4-10.4); MONOCYTE # 0.5 10^3/ul (0.3-0.9); MONOCYTES % 6.1 % (0.0-11.0); NEUTROPHIL # 6.5 10^3/ul (1.6-7.5); NEUTROPHILS % 83.6 % (39.0-77.0); PLATELET COUNT 193 10^3/UL (140-415); RED BLOOD COUNT 3.71 10^6/ul (4.20-5.40); RED CELL DISTRIBUTION WIDTH 17.7 % (11.5-14.5)
[2018-01-19 05:11] LABS: WHITE BLOOD COUNT 7.8 10^3/ul (4.8-10.8)
[2018-01-19 05:34] LABS: ANION GAP 14 (8-16); BLOOD UREA NITROGEN 62 mg/dl (7-20); CALCIUM 8.7 mg/dl (8.4-10.2); CARBON DIOXIDE 30 mmol/L (21-31); CHLORIDE 103 mmol/L (97-110); CREATININE 1.55 mg/dl (0.44-1.00); GLUCOSE 274 mg/dl (70-220); MAGNESIUM 2.2 mg/dl (1.7-2.5); PHOSPHORUS 2.6 mg/dl (2.5-4.9); SODIUM 144 mmol/L (135-144)
[2018-01-19] MEDS: PANTOPRAZOLE 40 MG INJ IV (05:35)
[2018-01-19] MEDS: BUMETANIDE 1 MG INJ IV ×2 (05:35→17:12)
[2018-01-19] MEDS: THIAMINE 100 MG TAB PO (08:20)
[2018-01-19] MEDS: LEVOTHYROXINE 75 MCG TAB PO (08:20)
[2018-01-19] MEDS ORDERED: DIGOXIN 500 MCG INJ IV (08:30)
[2018-01-19] MEDS: SILVER SULFADIAZINE 1% 25 GM CR TOP (09:00)
[2018-01-19] MEDS ORDERED: POTASSIUM CHLORIDE 20 MEQ POWDER FOR ORAL SOLN PO (09:00)
[2018-01-19] MEDS ORDERED: POTASSIUM CHLORIDE 50 ML IVPB (09:00)
[2018-01-19] MEDS: POTASSIUM CHLORIDE 100 ML IVPB ×2 (09:31→11:30)
[2018-01-19 09:35] LABS: DIGOXIN 0.7 ng/ml (1.0-2.0)
[2018-01-19] MEDS: DIGOXIN 500 MCG INJ IV (11:29)
[2018-01-19] MEDS: FENTAnyl (DRIP) 1000 mcg/100mL 100 ML IV (12:56)
[2018-01-19] MEDS: CEFEPIME 1GM/50 ML (PMX) 50 ML IVPB (16:07)
[2018-01-19 16:12] LABS: ANION GAP 10 (8-16); BLOOD UREA NITROGEN 64 mg/dl (7-20); CALCIUM 8.5 mg/dl (8.4-10.2); CARBON DIOXIDE 31 mmol/L (21-31); CHLORIDE 103 mmol/L (97-110); CREATININE 1.45 mg/dl (0.44-1.00); GLUCOSE 292 mg/dl (70-220); POTASSIUM 3.4 mmol/L (3.5-5.1); SODIUM 141 mmol/L (135-144)
[2018-01-19] MEDS: POTASSIUM CHLORIDE 20 MEQ POWDER FOR ORAL SOLN PO (17:12)
[2018-01-19] MEDS ORDERED: GLUCAGON 1 MG INJ IM (20:00)
[2018-01-19] MEDS ORDERED: GLUCOSE GEL 15 GRAM TUBE PO ×2 (20:00)
[2018-01-19] MEDS ORDERED: GLUCOSE GEL 15 GRAM TUBE BUCCAL (20:00)
[2018-01-19] MEDS ORDERED: DEXTROSE 50% 50 ML SYRINGE IV ×2 (20:00)
[2018-01-19] MEDS: INSULIN ASPART [NOVOLOG] 3 ML PEN SC (20:07)
[2018-01-20] MEDS: INSULIN ASPART [NOVOLOG] 3 ML PEN SC ×5 (00:59→17:00)
[2018-01-20] MEDS ORDERED: ACCU-CHEK XX (02:00)
[2018-01-20] MEDS: PHENYLephrine 40 MG in DEXTROSE 5% 496 ML IV (03:39)
[2018-01-20] MEDS: FENTAnyl (DRIP) 1000 mcg/100mL 100 ML IV (03:40)
[2018-01-20 04:01] LABS: ADD MAN DIFF? NO
[2018-01-20 04:09] LABS: WHITE BLOOD COUNT 7.6 10^3/ul (4.8-10.8)
[2018-01-20 04:09] LABS: BASOPHILS % 0.4 % (0.0-2.0); EOSINOPHILS # 0.1 10^3/ul (0.0-0.5); EOSINOPHILS % 1.6 % (0.0-7.0); HEMATOCRIT 34.7 % (37.0-47.0); HEMOGLOBIN 12.1 g/dl (12.0-16.0); LYMPHOCYTES # 0.7 10^3/ul (0.8-2.9); MEAN CORPUSCULAR HEMOGLOBIN 33.2 pg (29.0-33.0); MEAN CORPUSCULAR HGB CONC 34.9 g/dl (32.0-37.0); MEAN CORPUSCULAR VOLUME 95.3 fl (82.0-101.0); MEAN PLATELET VOLUME 12.3 fl (7.4-10.4); MONOCYTE # 0.6 10^3/ul (0.3-0.9); MONOCYTES % 7.5 % (0.0-11.0); NEUTROPHIL # 6.1 10^3/ul (1.6-7.5); NEUTROPHILS % 80.7 % (39.0-77.0); PLATELET COUNT 200 10^3/UL (140-415); RED BLOOD COUNT 3.64 10^6/ul (4.20-5.40); RED CELL DISTRIBUTION WIDTH 17.7 % (11.5-14.5)
[2018-01-20 04:36] LABS: ALBUMIN 2.6 g/dl (3.3-4.9); ANION GAP 10 (8-16); BLOOD UREA NITROGEN 61 mg/dl (7-20); CALCIUM 8.8 mg/dl (8.4-10.2); CARBON DIOXIDE 31 mmol/L (21-31); CHLORIDE 105 mmol/L (97-110); CREATININE 1.48 mg/dl (0.44-1.00); GLUCOSE 245 mg/dl (70-220); MAGNESIUM 2.1 mg/dl (1.7-2.5); PHOSPHORUS 2.7 mg/dl (2.5-4.9); POTASSIUM 3.3 mmol/L (3.5-5.1); SODIUM 143 mmol/L (135-144)
[2018-01-20 04:37] LABS: DIGOXIN 0.8 ng/ml (1.0-2.0)
[2018-01-20] MEDS: PANTOPRAZOLE 40 MG INJ IV (05:44)
[2018-01-20] MEDS: BUMETANIDE 1 MG INJ IV (05:45)
[2018-01-20] MEDS: POTASSIUM CHLORIDE 20 MEQ POWDER FOR ORAL SOLN PO (06:24)
[2018-01-20] MEDS: LEVOTHYROXINE 75 MCG TAB PO (08:27)
[2018-01-20] MEDS: DIGOXIN 500 MCG INJ IV (08:27)
[2018-01-20] MEDS: THIAMINE 100 MG TAB PO (08:28)
[2018-01-20] MEDS: SILVER SULFADIAZINE 1% 25 GM CR TOP (09:16)
[2018-01-20] MEDS: VANCOMYCIN 1 GM 250 ML IVPB (10:00)
[2018-01-20] MEDS: PROPOFOL 100 ML IV (12:00)
[2018-01-20 12:12] LABS: POTASSIUM 3.5 mmol/L (3.5-5.1)
[2018-01-20] MEDS: CEFEPIME 1GM/50 ML (PMX) 50 ML IVPB (16:00)
[2018-01-20] MEDS ORDERED: LORAZEPAM 2 MG INJ IM (16:30)
[2018-01-20] MEDS ORDERED: ONDANSETRON 4 MG INJ IM (16:30)
[2018-01-20] MEDS: LIDOCAINE 1% (MDV) 10 ML INJ (16:50)
[2018-01-20] MEDS: morphine (DRIP) 100 MG/100 ML 100 ML IV (21:02)
[2018-01-21] MEDS: ATROPINE 1% 5 ML OPH SL (01:46)
== END 2018-01-21 10:03 | disposition expired | DRG 870 ==
LOC: E/R 14:15 → ICU 16:48 → MS2 01-20 21:40
PROC: 5A1955Z Respiratory Ventilation, Greater than 96 Consecutive Hours (ICD-10-PCS; principal; 2018-01-08)
PROC: 0BH17EZ Insertion of Endotracheal Airway into Trachea, Via Natural or Artificial Opening (ICD-10-PCS; 2018-01-08)
PROC: 0W993ZX Drainage of Right Pleural Cavity, Percutaneous Approach, Diagnostic (ICD-10-PCS; 2018-01-13)
PROC: 0BC38ZZ Extirpation of Matter from Right Main Bronchus, Via Natural or Artificial Opening Endoscopic (ICD-10-PCS; 2018-01-15)
PROC: 0W993ZZ Drainage of Right Pleural Cavity, Percutaneous Approach (ICD-10-PCS; 2018-01-20)
DX: A40.8 Other streptococcal sepsis (principal); J96.01 Acute respiratory failure with hypoxia; J18.9 Pneumonia, unspecified organism; R65.21 Severe sepsis with septic shock; I50.33 Acute on chronic diastolic (congestive) heart failure; N17.0 Acute kidney failure with tubular necrosis; G92 Toxic encephalopathy; I13.0 Hypertensive heart and chronic kidney disease with heart failure and stage 1 through stage 4 chronic kidney disease, or unspecified chronic kidney disease; N39.0 Urinary tract infection, site not specified; T17.590A Other foreign object in bronchus causing asphyxiation, initial encounter; E87.0 Hyperosmolality and hypernatremia; J90 Pleural effusion, not elsewhere classified; I42.9 Cardiomyopathy, unspecified; Z66 Do not resuscitate; I46.9 Cardiac arrest, cause unspecified; L03.317 Cellulitis of buttock; E22.2 Syndrome of inappropriate secretion of antidiuretic hormone; J98.11 Atelectasis; N18.9 Chronic kidney disease, unspecified; F03.90 Unspecified dementia, unspecified severity, without behavioral disturbance, psychotic disturbance, mood disturbance, and anxiety; K80.20 Calculus of gallbladder without cholecystitis without obstruction; Z93.1 Gastrostomy status; E03.9 Hypothyroidism, unspecified; E87.5 Hyperkalemia; S00.83XA Contusion of other part of head, initial encounter; I48.2 Chronic atrial fibrillation; B96.20 Unspecified Escherichia coli [E. coli] as the cause of diseases classified elsewhere; D69.6 Thrombocytopenia, unspecified; D64.9 Anemia, unspecified; B95.61 Methicillin susceptible Staphylococcus aureus infection as the cause of diseases classified elsewhere; B95.2 Enterococcus as the cause of diseases classified elsewhere; Z86.61 Personal history of infections of the central nervous system; Z79.01 Long term (current) use of anticoagulants; Z86.73 Personal history of transient ischemic attack (TIA), and cerebral infarction without residual deficits; W19.XXXA Unspecified fall, initial encounter; Y92.009 Unspecified place in unspecified non-institutional (private) residence as the place of occurrence of the external cause
CPT/HCPCS: 31500; 32555; 36600; 70450; 71045; 72125; 74176; 76775; 76937; 76942; 80048; 80053; 80069; 80162; 80202; 81001; 82042; 82378; 82550; 82553; 82803; 82945; 82962; 83605; 83615; 83735; 83880; 83935; 83986; 84100; 84132; 84133; 84157; 84300; 84484; 84560; 85025; 85610; 85730; 87040; 87070; 87075; 87081; 87086; 87102; 87116; 88104; 88305; 89051; 93005; 93306; 94002; 94003; 94640; 94664; 94770; 96374; 96375; 99291-25